=== PATIENT | female | born 2000 | race Caucasian/White ===

== ENCOUNTER 2021-12-11 10:08 | Emergency (ER) | payer BC, OTHER, SELFPAY ==
--- NOTE | 2021-12-11 10:12 | ED.NAVMDI ---
HPI - Nausea/Vomiting/Diarrhea General Chief complaint: Abdominal Pain Stated complaint: Throwing Up Time Seen by Provider: 12/11/21 10:15 Source: patient, RN notes reviewed and old records reviewed Mode of arrival: ambulatory Limitations: no limitations History of Present Illness HPI Narrative: 21-year-old female with a history of Crohn's presents to the [facility] with complaints of generalized abdominal pain. Patient states nausea started approximately 2130 last night. Vomiting started an hour later. Has not been able to keep any fluids down. Had a diarrheal episode approximately 930 this morning. Tender to palpation right lower, left lower Denies urinary symptoms MD elicited complaint: nausea, vomiting and abdominal pain Onset (ago): hour(s) (12) Severity: moderate Related Data Home Medications Medication Instructions Recorded Confirmed drospirenone (contraceptive) 12/11/21 [Slynd] mesalamine PO 12/11/21 omeprazole 12/11/21 Allergies Allergy/AdvReac Type Severity Reaction Status Date / Time No Known Allergies Allergy Mild Verified 08/11/19 16:54 Review of Systems Review of Systems: All systems reviewed & are unremarkable except as noted in HPI and below Constitutional: Constitutional: Reports no additional constitutional complaints, Denies chills and Denies fever(s) Eyes: Eyes: Reports no additional eye complaints ENT: Reports system reviewed and no additional complaints, except as documented Cardiovascular: Cardiovascular: Reports no additional cardiovascular complaints, Denies chest pain and Denies dyspnea Respiratory: Respiratory: Reports no additional respiratory complaints, Denies cough, Denies dyspnea and Denies wheezing Gastrointestinal: Gastrointestinal: Reports no additional gastrointestinal complaints, Reports abdominal pain, Denies constipation, Reports diarrhea, Reports nausea and Reports vomiting Musculoskeletal: Musculoskeletal: Reports no additional musculoskeletal complaints Integumentary/Breasts: Skin/Breast: Reports system reviewed and no additional complaints, except as docu Neurologic: Reports system reviewed and no additional complaints, except as documented Psychiatric: Psychiatric: Reports no additional psychiatric complaints Allergic/Immunologic: Allergic/Immunologic: Reports no additional allergic/immunologic complaints [facility] Past Medical History Medical History (Updated 12/11/21 @ 10:30 by Jessica Andrews APRN) Crohn's disease Comments At the time of my signature, I reviewed and agree with the nursing past medical, surgical, social, and family history. There is no relevant family history pertinent to the patient complaint. Exam Const: General: healthy appearing, no acute distress and alert Nutritional Appearance: well nourished and obese Orientation/consciousness: patient oriented x3 Limitations: no limitations HENMT: Head: normal to inspection Ears: external ears normal Eyes: Pupils: Equal, round and reactive pupils present Neck: Neck: normal visual inspection, no lymphadenopathy and no meningeal signs Chest: Chest palpation & inspection: normal inspection of the chest Resp: Effort & Inspection: normal respiratory effort and no use of accessory muscles Auscultation: clear to auscultation bilaterally, no crackles, no rales, no rhonchi and no wheezes Cardio: Rate: regular rate Rhythm: regular rhythm GI: GI Palp: Yes Soft to palpation, Yes Tenderness to palpation present (GI), Yes Guarding due to palpation present (GI) (Right lower, left lower) and Yes Rebound tenderness present (Right lower) Auscultation: Hypoactive bowel sounds present Skin: General skin exam: normal color Rashes: no rashes Wounds: no wounds Neuro: General: patient oriented x3, moves all extremities, no meningeal signs and no focal motor deficits Cranial nerves: Yes Equal, round and reactive pupils present Speech: normal speech Gait exam (Neuro): Normal gait present Extrem:
[2021-12-11 10:19] VITALS: BP 125/82; PULSE 109; RESP 18; TEMP 37; O2SAT 99
--- NOTE | 2021-12-11 10:32 | PC.NURSE ---
1022 initially requested transfer to [facility] but requested to call insurance to make sure about ins. coverage
--- NOTE | 2021-12-11 10:33 | PC.NURSE ---
twister doffer aware of mother at bedside calling father and insurance company.
== END 2021-12-11 10:38 | disposition short-term general hospital (02) ==
PROVIDERS: Emergency Provider Nurse Practitioner; PCP Pediatrics
DX: R10.31 Right lower quadrant pain (principal); R10.32 Left lower quadrant pain; K50.90 Crohn's disease, unspecified, without complications
CPT/HCPCS: 99212; G0463

== ENCOUNTER 2021-12-11 10:57 | Emergency (ER) | payer OTHER, BC, SELFPAY ==
--- NOTE | ~2021-12-11 | CT_ITS ---
EXAMINATION: CT abdomen pelvis w con INDICATION: Abdominal pain TECHNIQUE: Computed tomographic images of the abdomen and pelvis were obtained after the administrati on of 100 cc of Omnipaque 350 intravenous contrast. The dose-length product (DLP) was 1391.09 mGy-cm. Automated exposure control and iterative reconstruction technique were employed. COMPARISON: None available FINDINGS: The lung bases are clear. The heart size is normal. The liver, spleen, pancreas, gallbladde r, and adrenal glands are normal. There is patchy perfusion of the kidneys. No pathologically enlarge d abdominal or pelvic lymph nodes are identified. There is no free intraperitoneal gas or evidence of bowel obstruction. There is liquid stool throughout the colon to the level of the rectum. There are a greater than normal number of fluid-filled, nondistended small bowel loops. The visualized osseous structures are unremarkable. IMPRESSION: 1. CT findings suggestive of enterocolitis. 2. Patchy perfusion of the kidneys of unclear significance given the essentially normal urinalysis. Reviewed, dictated and finalized at location B. IMPRESSION: 1. CT findings suggestive of enterocolitis. 2. Patchy perfusion of the kidneys of unclear significance given the essentiall y normal urinalysis.
[2021-12-11 11:23] VITALS: BP 133/79; PULSE 107; RESP 16; TEMP 36.9; O2SAT 100
[2021-12-11 11:45] LABS: Basophils Percent Auto 0.2 % (0.2-1.2); Eosinophils Percent Auto 0.1 % (0-4.4); Hematocrit 42.9 % (37.0-47.0); Hemoglobin 13.9 g/dL (12.0-15.0); Immature Granulocyte Absolute 0.02 K/mm3 (0.00-0.031); Immature Granulocyte Percent A 0.2 % (0-0.5); Lymphocytes Absolute Auto 0.34 K/mm3 (0.9-3.2); Lymphocytes Percent Auto 4.1 % (18.3-44.2); Mean Corpuscular HGB Conc 32.4 g/dl (32-36); Mean Corpuscular Hemoglobin 30.4 pg (26-34); Mean Corpuscular Volume 93.9 fl (80-100); Mean Platelet Volume 10.4 fl (7.4-10.4); Monocytes Absolute Auto 0.3 K/mm3 (0.1-0.6); Monocytes Percent Auto 3.5 % (2.6-8.5); Neutrophils Absolute Auto 7.6 K/mm3 (1.3-6.7); Neutrophils Percent Auto 91.9 % (45.5-73.1); Platelet Count Result 316 k/mm3 (150-375); Red Blood Count 4.57 M/mm3 (4.2-5.4); Red Cell Distribution Width 13.1 % (11.5-14.5); White Blood Count 8.2 K/mm3 (4.5-10.0)
[2021-12-11 11:53] LABS: Add Urine Microscopic? YES; Appearance Urine Cloudy (Clear); Bacteria Urine Trace /hpf; Bilirubin Urine Negative (Negative); Blood Urine 1+ (Negative); Color Urine Yellow (Yellow); Glucose Urine UA Negative (Negative); Ketones Urine Negative (Negative); Leukocyte Esterase Ur Negative LEU/UL (Negative); Mucus Urine Rare /lpf; Nitrate Urine Negative (Negative); Protein Urine Negative (Negative); Specific Grav Ur 1.021 (1.001-1.035); Squamous Epithelial Cell Urine Many /hpf (Few); Urobilinogen Urine Negative mg/dL (<2.0); WBC Urine 0-3 /hpf
[2021-12-11 12:03] LABS: Alanine Aminotransferase 22 U/L (4-35); Albumin Level 4.6 g/dL (3.5-5.1); Alkaline Phosphatase 59 U/L (38-126); Anion Gap 10 mmol/L (8-16); Aspartate Amino Transferase 23 U/L (14-36); Bilirubin,Total 0.7 mg/dL (0.2-1.3); Blood Urea Nitrogen 13 mg/dL (7-17); Calcium 8.8 mg/dL (8.4-10.2); Carbon Dioxide 23 mmol/L (22-30); Chloride 108 mmol/L (98-107); Estimated CRCL calculation 137 ml/min; Estimated Glomerular Filt Rate > 60; Glucose 123 mg/dL (65-110); Lipase 48 U/L (23-300); Potassium 3.9 mmol/L (3.4-5.0); Sodium 141 mmol/L (137-145)
[2021-12-11 12:05] VITALS: BP 140/104; PULSE 124; RESP 14; O2SAT 97
[2021-12-11 12:13] LABS: Atypical Lymphocytes Present; Platelet Estimate Adequate (Adequate)
[2021-12-11] MEDS: SODIUM CHLORIDE 0.9% IV 1,000 ML 999 ML IV CONT ×2 (12:30→14:13)
--- NOTE | 2021-12-11 12:30 | ED.ABDPAIN ---
HPI - Abdominal Pain General Chief Complaint: Abdominal Pain Stated Complaint: abd pain, N/V/D, from express care Time Seen by Provider: 12/11/21 12:24 Source: patient and RN notes reviewed Mode of arrival: ambulatory Limitations: no limitations History of Present Illness HPI narrative: Patient is 21 years old white female works at [employer] presents with sudden onset of nausea, vomiting and diarrhea started 7 PM last night, patient reports at least 8 vomiting and a 5 diarrhea so far. Patient denies sick contact. Related Data Home Medications Medication Instructions Recorded Confirmed drospirenone (contraceptive) 12/11/21 [Slynd] mesalamine PO 12/11/21 omeprazole 12/11/21 Allergies Allergy/AdvReac Type Severity Reaction Status Date / Time No Known Allergies Allergy Mild Verified 12/11/21 12:04 Review of Systems Review of Systems: CONSTITUTIONAL: Denies fever, chills, or sweats. EYES: Denies visual changes, redness, or discharge. ENT: Denies rhinorrhea, congestion, sore throat, or otalgia. CARDIOVASCULAR: Denies chest pain, palpitations, or edema. RESPIRATORY: Denies cough or dyspnea. GASTROINTESTINAL: Nausea, vomiting and diarrhea GENITOURINARY: Denies dysuria or hematuria. SKIN: Denies rash or itching. MUSCULOSKELETAL: Denies back pain, joint pain, or myalgia. NEUROLOGIC: Denies headache, numbness, or weakness. PSYCHIATRIC: Denies anxiety or depression. PMFSH Past Medical History Medical History Crohn's disease Exam Narrative: General appearance: Well-developed, well-nourished, looks ill Skin: Normal color Head: Normocephalic, nontraumatic Eyes: Clear conjunctiva ENT: Oropharynx normal, ears normal, nose normal Neck: Supple, nontender Chest and respiratory: Airway patent, no respiratory distress, no accessory muscle use Heart: Regular rate/rhythm Abdomen: Soft, nontender, no organomegaly, quiet bowel sounds Vascular: Normal peripheral pulses, normal capillary refill. Musculoskeletal: Normal range of motion, nontender back Neurologic: Alert and oriented ?3, [employer] is normal as tested, no gross motor deficit Course Course Emergency Course: Improving Vital Signs Vital signs: Vital Signs Temperature 36.9 C 12/11/21 11:23 Pulse Rate 107 H 12/11/21 11:23 Respiratory Rate 16 12/11/21 11:23 Blood Pressure 133/79 12/11/21 11:23 Pulse Oximetry 100 12/11/21 11:23 Temperature 36.9 C 12/11/21 11:23 Pulse Rate 124 H 12/11/21 12:05 Respiratory Rate 14 12/11/21 12:05 Blood Pressure 140/104 H 12/11/21 12:05 Pulse Oximetry 97 12/11/21 12:05 MDM - Abdominal Pain MDM Narrative Medical decision making narrative: Patient presents with nausea, vomiting and diarrhea, consistent with gastroenteritis. Which should been seen a lot lately. Differential diagnosis as below. Differential Diagnosis Differential diagnosis: Likely gastroenteritis and other (Electrolyte imbalance, dehydration, enteritis) Lab Data Result diagrams: 12/11/21 11:35 12/11/21 11:35 Labs: Lab Results 12/11/21 12/11/21 12/11/21 Range/Units 11:35 11:35 11:35 WBC 8.2 (4.5-10.0) K/mm3 RBC 4.57 (4.2-5.4) M/mm3 Hgb 13.9 (12.0-15.0) g/dL Hct 42.9 (37.0-47.0) % MCV 93.9 (80-100) fl MCH 30.4 (26-34) pg MCHC 32.4 (32-36) g/dl RDW 13.1 (11.5-14.5) % Plt Count 316 (150-375) k/mm3 MPV 10.4 (7.4-10.4) fl Immature Gran % (Auto) 0.2 (0-0.5) % Neut % (Auto) 91.9 H (45.5-73.1) % Lymph % (Auto) 4.1 L (18.3-44.2) % [place] % (Auto) 3.5 (2.6-8.5) % Eos % (Auto) 0.1 (0-4.4) % Baso % (Auto)
[2021-12-11 13:42] VITALS: BP 121/78; PULSE 110; RESP 14; O2SAT 100
[2021-12-11] MEDS: ONDANSETRON INJ 4 MG/2 ML VIAL 8 MG IV PUSH (14:10)
[2021-12-11] MEDS: KETOROLAC 30 MG/ML VIAL (*BKC) IV PUSH (14:10)
[2021-12-11 15:11] VITALS: BP 125/73; PULSE 104; RESP 14; O2SAT 97
== END 2021-12-11 15:35 | disposition home or self-care (01) ==
PROVIDERS: Emergency Medicine; Emergency Provider Emergency Medicine; PCP Pediatrics
DX: K52.9 Noninfective gastroenteritis and colitis, unspecified (principal); K50.90 Crohn's disease, unspecified, without complications
CPT/HCPCS: 36415; 74177; 80053; 81001; 81025; 83690; 85025; 96361; 96374; 96375; 99284; J1885; J2405; J7030; Q9967